=== PATIENT | female | born 1930 | race Caucasian/White ===

== ENCOUNTER 2016-07-03 17:34 | Emergency (ER) | payer MEDICARE, BC ==
[2016-07-03 17:52] VITALS: BP 118/65
--- NOTE | 2016-07-03 18:59 | UC ---
UC General HPI - HPI Summary HPI Summary: Pt is accompanied by daughter. Daughter reports that pt woke in the middle of the night lying on the floor and daughter reports that her mother is "acting different" Daghter is concerned about contusion and /or UTI. Though no c/o dysuria, frequency and urgency. 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 Onset/Duration: Sudden Onset Current Severity: None Associated Signs & Symptoms: Positive: Confusion - Allergy/Home Medications Allergies/Adverse Reactions: Allergies Allergy/AdvReac Type Severity Reaction Status Date / Time No Known Allergies Allergy Verified 02/01/16 09:41 Home Medications: Home Medications Amlodipine Besylate [Norvasc-] 10 mg PO DAILY 07/03/16 [History Confirmed ] Cholecalciferol [Vitamin D] 1,000 unit PO DAILY 07/03/16 [History Confirmed ] PMH/Surg Hx/FS Hx/Imm Hx Previously Healthy: No - see pmh Endocrine History Of: Reports: Thyroid Disease Cardiovascular History Of: Reports: Hypertension - Surgical History Surgical History: None Surgery Procedure, Year, and Place: KNEE REPLACEMENT. PARA THYROIDECTOMY. HYSTERECTOMY - Family History Known Family History: Positive: Cardiac Disease, Hypertension - Social History Alcohol Use: None Substance Use Type: None Smoking Status (MU): Former Smoker When Did the Patient Quit Smoking/Using Tobacco: 55 YRS AGO Review of Systems Constitutional: Negative Skin: Negative Eyes: Negative ENT: Negative Respiratory: Negative Cardiovascular: Negative Gastrointestinal: Negative Genitourinary: Negative Motor: Negative Neurovascular: Negative Musculoskeletal: Negative Neurological: Negative Psychological: Negative All Other Systems Reviewed And Are Negative: Yes Physical Exam Triage Information Reviewed: Yes Appearance: Well-Appearing Vital Signs: Initial Vital Signs Temp 97.6 F 07/03/16 17:41 Pulse 77 07/03/16 17:41 Resp 16 07/03/16 17:41 BP 118/65 07/03/16 17:41 Pulse Ox 99 07/03/16 17:41 Vital Signs Reviewed: Yes Neck exam: Normal Respiratory Exam: Normal Cardiovascular Exam: Normal Abdominal Exam: Normal Musculoskeletal Exam: Normal Neurological Exam: Normal Psychological Exam: Normal Skin Exam: Normal Course/Dx - Course Course Of Treatment: pt was unable to provide urine sample at todays visit.I discussed witht he daughte that i did not find any severely contused areas on her exam, and that we needed a urine sample to asses for UTI that may be attributing to slight change in mentation. Pt's daughter verbalized understanding and agreed to plan of care. - Differential Dx - Multi-Symptom Differential Diagnoses: CVA, Urinary Tract Infection, Other - contusion Provider Diagnoses: contusion Discharge - Discharge Plan Condition: Stable Disposition: HOME Patient Education Materials: Contusion in Adults (ED) Referrals: Swapna Burrell MD [Primary Care Provider] - Additional Instructions: Please follow up with your PCP as soon as possible.
== END 2016-07-03 18:55 | disposition home or self-care (01) ==
LOC: UCCORT 17:34
DX: T14.8 Other injury of unspecified body region (principal); X58.XXXA Exposure to other specified factors, initial encounter; Y93.9 Activity, unspecified; Y92.009 Unspecified place in unspecified non-institutional (private) residence as the place of occurrence of the external cause; F44.89 Other dissociative and conversion disorders; Z96.659 Presence of unspecified artificial knee joint; Z87.891 Personal history of nicotine dependence
CPT/HCPCS: 99212; G0463